=== PATIENT | male | born 1990 | race Two or more races ===

== ENCOUNTER 2017-07-27 18:57 | Emergency (ER) | payer OTHER ==
[~2017-07-27] VITALS: Ht 167.6 cm; Wt 99.8 kg
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
--- NOTE | 2017-07-27 19:10 | NUR ---
DR SANTIAGO AT BEDSIDE TO
--- NOTE | 2017-07-27 19:26 | NUR ---
Patient discharged to police custody in stable condition. Written and verbal after care instructions given. Patient verbalizes understanding of instruction. Patient is ambulatory with steady gait, no further complaints.
[2017-07-27 19:27] VITALS: BP 127/84
== END 2017-07-27 19:35 ==
LOC: ER 18:59
DX: S09.90XA Unspecified injury of head, initial encounter (principal); S00.83XA Contusion of other part of head, initial encounter; I10 Essential (primary) hypertension; F17.200 Nicotine dependence, unspecified, uncomplicated; W22.8XXA Striking against or struck by other objects, initial encounter; Y93.89 Activity, other specified; Y92.89 Other specified places as the place of occurrence of the external cause; Y99.9 Unspecified external cause status
CPT/HCPCS: 99283; A4606; Z7610